=== PATIENT | male | born 1945 | race Caucasian/White ===

== ENCOUNTER 2017-01-18 18:27 | Inpatient (IN) | payer OTHER ==
[~2017-01-18] VITALS: Ht 172.7 cm; Wt 126.6 kg
--- NOTE | ~2017-01-18 | 2DMMODE ---
[place] [address] [place] [address] 2 D/M-MODE ECHOCARDIOGRAM Name: JOHAN KELLOGG Room #: 459-P [facility] IN .#: [id number] Admission: 01/18/17 Attend Phys: Kp Barroso MD Discharge: Date of : 49 Date of Service: 01/19/17 1450 Report #: [id number] THIS REPORT FOR: //name// APPROVED REPORT Study performed: 01/19/2017 12:28:32 EXAM: Comprehensive 2D, Doppler, and color-flow Echocardiogram Patient Location: Bedside Room #: 459 Blood Pressure: 184/112 mmHg HR: 89 bpm Rhythm: NSR Other Information Study Quality: Adequate Technically limited study due to body habitus, inability to position patient, lung disease. Indications Congestive Heart Failure Dyspnea Hx COPD, CVA, CAD, DM, HLP, Morbid Obesity 2D Dimensions RVDd: 40.97 mm LVEF(%): 62.96 (>50%) IVSd: 14.38 (7-11mm) LVOT Diam: 23.51 (18-24mm) LVDd: 49.44 mm PWd: 12.17 (7-11mm) Ascending Ao: 40.61 (22-36mm) LVDs: 32.54 (25-40mm) Aortic Root: 34.88 mm Miller's LVEF: 62.96 % Volumes Left Atrial Volume (Systole) Single Plane 4CH: 78.87 mL Single Plane 2CH: 57.78 mL LA ESV Index: 31.00 mL/m2 Aortic Valve AoV Peak Dusty.: 2.27 m/s AO Peak Gr.: 20.63 mmHg LVOT Max P.29 mmHg LVOT Max V: 1.52 m/s [facility] [place] [address] 2 D/M-MODE ECHOCARDIOGRAM Name: JOHAN KELLOGG Room #: 459-P [facility] IN .R.#: [id number] Admission: 01/18/17 Attend Phys: Kp Barroso MD Discharge: Date of : 49 Date of Service: 01/19/17 1450 Report #: [id number] YENNY Vmax: 2.91 cm2 Mitral Valve IVRT: 96.89 ms Pulmonary Valve PV Peak Dusty.: 1.50 m/s PV Peak Gr.: 9.00 mmHg Pulmonary Vein P Vein S: 0.74 m/s P Vein A: 0.39 m/s P Vein D: 0.70 m/s P Vein A Dur.: 124.6 msec P Vein S/D Ratio: 1.06 Tricuspid Valve TR Peak Dusty.: 2.95 m/s TR Peak Gr.: 34.92 mmHg Left Ventricle The left ventricle is normal size. There is normal LV segmental wall motion. Mild concentric left ventricular hypertrophy. The left ventricular systolic function is normal. The left ventricular ejection fraction is within the normal range. LVEF is 60-65%. This study is not technically sufficient to allow evaluation of the LV diastolic function. Right Ventricle The right ventricle is normal size. The right ventricular systolic function is normal. Atria Left atrium is mildly dilated. Right atrium is mildly dilated. Aortic Valve Aortic valve is calcified. Trace aortic regurgitation. There is no aortic valvular stenosis. Mitral Valve The mitral valve is normal in structure. Trace mitral regurgitation. No evidence of mitral valve stenosis. Tricuspid Valve The tricuspid valve is normal in structure. There is mild tricuspid regurgitation. There is mild-moderate pulmonary hypertension with an estimated PAP of 35 [place] [address] 2 D/M-MODE ECHOCARDIOGRAM Name: JOHAN KELLOGG Room #: 459-P [facility] IN ..#: [id number] Admission: 01/18/17 Attend Phys: Kp Barroso MD Discharge: Date of : 49 Date of Service: 01/19/17 1450 Report #: [id number] Pulmonic Valve The pulmonary valve is normal in structure. Trace pulmonic regurgitation. Great Vessels The aortic root is normal in size. The ascending aorta is normal in size. IVC is not well visualized. Pericardium There is no pericardial effusion. <Conclusion> The left ventricle is normal size. Mild concentric left ventricular hypertrophy. LVEF is 60-65%. Left atrium is mildly dilated. Right atrium is mildly dilated. Aortic valve is calcified. Trace aortic regurgitation. The mitral valve is normal in structure. Trace mitral regurgitation. The tricuspid valve is normal in structure. There is mild tricuspid regurgitation. There is mild-moderate pulmonary hypertension with an estimated PAP of 35 mmHg plus the RAP. The pulmonary valve is normal in structure. Trace pulmonic regurgitation. <ELECTRONICALLY SIGNED> By: Juan Alberto Sarabia MD 01/19/17 1450 1450 1450 Juan Alberto Sarabia MD /INF
--- NOTE | ~2017-01-18 | HC ---
[facility] [place] [address] [place] [address] CONSULTATION Name: JOHAN KELLOGG Room #: 459-P [facility] IN .R.#: [id number] Admission: 01/18/17 Attend Phys: Kp Barroso MD Discharge: Date of : 49 Report #: [id number] THIS REPORT FOR: //name// CC: Estephania Barroso TYPE OF REPORT: Pulmonary consultation. REFERRAL PHYSICIAN: Kp Barroso M.D. REASON FOR REFERRAL: Dyspnea. HISTORY OF PRESENT ILLNESS: The patient is a 71-year-old white male who was brought to the Emergency Room with progressive dyspnea. A pulmonary consultation was requested. The patient resides in a half-way following a CVA with left-sided weakness. The patient has been in his usual state of health until 3 days ago when he started to develop the rhinorrhea, cough and dyspnea. A chest x-ray performed on admission shows vascular congestion, though this was not available for review in the computer. Currently, he appears dyspneic with moderate upper airways sounds. He appears weak. Otherwise, history is somewhat limited as the patient is a fair historian. PAST MEDICAL HISTORY: Notable for history of COPD with past history of respiratory failure in November of 2016; CVA with left-sided hemiparesis; history of ASHLEY; diabetes mellitus; hypertension; coronary artery disease; ischemic cardiomyopathy with chronic diastolic and systolic heart failure; dementia; chronic kidney disease, level 3; hyperlipidemia; debility and weakness with history of falls; benign prostatic hypertrophy; degenerative joint disease; macular degeneration; anemia and depression. PAST SURGICAL HISTORY: Unremarkable. ALLERGIES: To SHELLFISH but none to medications. MEDICATIONS: From half-way are reviewed an assisted in the MAR. FAMILY HISTORY: Noncontributory. SOCIAL HISTORY: The patient is a lifetime nonsmoker. No alcohol use. He resides in a half-way. [facility] [address] [place] [address] CONSULTATION Name: VALDEZJOHAN Room #: 459-P [facility] IN [facility]#: [id number] Admission: 01/18/17 Attend Phys: Kp Barroso MD Discharge: Date of : 49 Report #: [id number] REVIEW OF SYSTEMS: As mentioned above, otherwise somewhat limited due to the patient's mental status. Otherwise, 10-point system review negative. PHYSICAL EXAMINATION: GENERAL: He is awake, alert and appears to be mildly dyspneic. VITAL SIGNS: Temperature is 98.4 degrees Fahrenheit, pulse is 90, respiratory rate is 24, blood pressure is 166/108 mmHg and saturation is 95%. HEENT: Normocephalic and atraumatic. NECK: Supple, without any lymphadenopathy or thyromegaly. CHEST: Breath sounds decreased with mild coarse breath sounds bilaterally. No overt wheezes. Few scattered crackles are heard in the bases. CARDIOVASCULAR: Heart sounds are distant. No obvious murmurs or gallop. Pulses are 2+/4+ bilaterally. ABDOMEN: Moderately obese, soft and nontender. No organomegaly or masses felt. GENITOURINARY: Deferred. RECTAL: Deferred. EXTREMITIES: No cyanosis or clubbing but remarkable for 2+/4+ bilateral pretibial edema. RADIOLOGICAL DATA: Again, not able to review chest x-ray but report suggests vascular congestion. Echocardiogram performed earlier today showed an ejection fraction of 60%-65%, mild concentric left ventricular hypertrophy, mildly dilated left and right atrium, trace aortic regurgitation, trace mitral regurgitation and pulmonary artery pressure measuring 35 mmHg. LABORATORY DATA: Electrolytes are unremarkable except for bicarbonate 36, BUN is 23 and creatinine is 1.0. WBC 9000, hemoglobin is 9.8 and platelets are mildly elevated. There are 9% bandemia. Albumin 2.4. IMPRESSION: 1. Acute hypoxic respiratory failure in this 71-year-old white male, likely secondary to acute combined heart failure, possible pneumonia. He has a history of chronic obstructive pulmonary disease and sleep apnea, which is likely contributing. 2. Probable [id number] diastolic and systolic heart failure. 3. Chronic obstructive pulmonary disease with mild exacerbation. 4. Obstructive sleep apnea, not clear if the patient is on continuous positive airway pressure or bilevel positive airway pressure in the half-way. 5. Suspect a component of chronic hypercapnic respiratory failure with elevated bicarbonate level on today's electrolytes. Baseline arterial blood gas will be obtained. 6. Coronary artery disease. 7. Cerebrovascular accident with left-sided hemiparesis, with progressive debility and weakness. 8. Hypertension, essential. 9. Dementia. [address] [address] CONSULTATION Name: JOHAN KELLOGG Room #: 459-P [facility] IN .R.#: [id number] Admission: 01/18/17 Attend Phys: Kp Barroso MD Discharge: Date of : 49 Report #: [id number] 10. Chronic kidney disease, creatinine today appears to be normal. RECOMMENDATION: We will start broad-spectrum antibiotics to cover for possible nosocomial infections including possible aspiration. Agree with corticosteroids and bronchodilators. DVT and GI prophylaxis has been addressed. I will tailor the antibiotics as such, given the patient is from a half-way. Additional recommendation will be BiPAP or CPAP during sleep p.r.n. if the patient tolerates. This might be difficult given his underlying dementia. Thank you for the consultation. <ELECTRONICALLY SIGNED> By: Sammy Edward MD 01/20/17 1442 1601 0244 Sammy Edward MD /nt
--- NOTE | ~2017-01-18 | EKG ---
[address] [address] ELECTROCARDIOGRAM REPORT Name: JOHAN KELLOGG Room #: 459-P [facility] [place] [facility]#: [id number] Admission: 01/18/17 Attend Phys: Kp Barroso MD Discharge: Date of : 49 Report #: [id number] THIS REPORT FOR: //name// [facility] ED Test Date: 2017-01-18 Test Time: 18:40:19 Pat Name: JOHAN KELLOGG Department: Room: [facility] Gender: M Teaching Music Lessons: elin : 1945 Requested By: Jc Villalba Order Number: [id number] MD: Koby Lundberg Measurements Intervals [place] Rate: 107 P: 28 NM: 170 QRS: -28 QRSD: 92 T: 83 QT: 330 QTc: 441 Interpretive Statements Sinus tachycardia Borderline left axis deviation Anteroseptal infarct, old Minimal ST depression, lateral leads Compared to ECG 05/09/2016 05:36:02 Septal Q waves are more prominent Electronically Signed On 01-19-2017 7:46:16 CDT by Koby Lundberg [email or web address] <ELECTRONICALLY SIGNED> By: Koby Lundberg MD, [facility] 01/19/17 0746 1840 1840 Koby Lundberg MD, [facility] /EPI
[~2017-01-18 18:27] MED LIST: ALDACTONE25 MG PO; AMITRIPTYLINE H25 M2 PO; APAP500 PO; ARICEPT 5 MG TAB5 MG PO; CARVEDILOL12.5 MG PO; CATAPRES0.2 MG PO; CELEXA20 MG PO; CLARITIN10 MG PO; FLOMAX0.4 MG PO; FLONASE 0.05%50 MCG NASAL; GLYCOLAX255 GM PO; HYDROCHLOROTHIA25 M2 PO; LIPITOR40 MG PO; MELOXICAM15 MG PO; PERCOCET PO; PLAVIX 75 MG TA75 M1 PO; POTASSIUM20 PO; PRINIVIL20 MG PO; TRICOR145 MG PO; VENTOLIN HFA 1818 GM INH; WELLBUTRIN SR150 MG PO; ZOCOR20 MG PO; ZOFRAN ODT4 MG PO
[2017-01-18 18:28] VITALS: BP 155/86
[2017-01-18 18:54] LABS: HEMATOCRIT 30.2 % (42.0-52.0); HEMOGLOBIN 9.8 gm/dL (14.0-18.0); MCH 28.7 pg (26.0-34.0); MCHC 32.5 g/dL (28.0-37.0); MCV 88.5 fL (80.0-100.0); PLATELET COUNT 404 thou/uL (150-400); RBC 3.41 mil/uL (4.50-6.00); RDW 16.4 % (10.5-14.5)
[2017-01-18 18:58] LABS: MANUAL DIFF YES
[2017-01-18 19:05] LABS: ANION GAP 5 mmol/L (7-16); BUN 20 mg/dL (7-18); CALCIUM 10.1 mg/dL (8.5-10.1); CHLORIDE 102 mmol/L (98-107); CO2 37 mmol/L (21-32); CREATININE 1.1 mg/dL (0.7-1.3); GLUCOSE 115 mg/dL (74-106); POTASSIUM 3.7 mmol/L (3.5-5.1); SODIUM 144 mmol/L (136-145)
[2017-01-18 19:21] LABS: ALBUMIN 2.4 g/dL (3.4-5.0); ALKALINE PHOSPHATASE 61 U/L (46-116); MAGNESIUM 1.3 mg/dL (1.8-2.4); NT-PRO BRAIN NAT PEPTIDE 632 pg/mL (<300); SGOT 24 U/L (15-37); SGPT 32 U/L (30-65); TOTAL BILIRUBIN 0.3 mg/dL (<0.1-1.0); TOTAL PROTEIN 6.7 g/dL (6.4-8.2); TROPONIN-I < 0.04 ng/mL (<0.04-0.07)
[2017-01-18 19:25] LABS: ATYPICAL LYMPHS 6 %; TOTAL CELL COUNT 100
[2017-01-18 19:27] LABS: ANISOCYTOSIS 1+; MICROCYTES 1+; POLYCHROMASIA SLIGHT
[2017-01-18 21:04] VITALS: BP 160/96
[2017-01-18] MEDS ORDERED: CRESTOR10 MG PO (22:57)
[2017-01-18] MEDS ORDERED: SENNA8.6 MG PO (22:58)
[2017-01-18] MEDS ORDERED: FLOMAX0.4 MG PO (22:59)
[2017-01-18] MEDS ORDERED: LISINOPRIL20 MG PO (23:00)
[2017-01-18] MEDS ORDERED: KETOCONAZOLE60 GM TP (23:01)
[2017-01-18] MEDS ORDERED: APAP500 PO (23:02)
[2017-01-18] MEDS ORDERED: METFORMIN HCL500 MG PO (23:04)
[2017-01-18] MEDS ORDERED: CLONIDINE0.1 PO (23:05)
[2017-01-18] MEDS ORDERED: MELATONIN3 MG PO (23:06)
[2017-01-18] MEDS ORDERED: ONDANSETRON HCL4 M2 PO (23:07)
[2017-01-18] MEDS ORDERED: ENDOCET 5-3251 EACH PO (23:08)
[2017-01-18] MEDS ORDERED: ALDARA1 EACH TOP (23:10)
[2017-01-18] MEDS ORDERED: CELEXA20 MG PO (23:11)
[2017-01-18] MEDS ORDERED: PLAVIX 75 MG TA75 M1 PO (23:11)
[2017-01-18] MEDS ORDERED: FLEXERIL PO (23:12)
[2017-01-18] MEDS ORDERED: PROSCAR 5MG TABL5 MG PO (23:12)
[2017-01-18] MEDS ORDERED: POTASSIUM20 PO (23:13)
[2017-01-18] MEDS ORDERED: LASIX 40 MG TAB40 M2 PO (23:13)
[2017-01-18] MEDS ORDERED: GLUCOSAMINE HC500 MG PO (23:14)
[2017-01-18 23:25] VITALS: BP 155/98
[2017-01-19 03:15] VITALS: BP 153/96
[2017-01-19 03:17] LABS: HEMATOCRIT 30.7 % (42.0-52.0); MCH 28.9 pg (26.0-34.0); MCHC 32.4 g/dL (28.0-37.0); RBC 3.45 mil/uL (4.50-6.00); RDW 16.2 % (10.5-14.5); WBC 7.5 thou/uL (4.0-11.0)
[2017-01-19 03:39] LABS: ANION GAP 5 mmol/L (7-16); BUN 23 mg/dL (7-18); CALCIUM 10.5 mg/dL (8.5-10.1); CHLORIDE 101 mmol/L (98-107); CHOLESTEROL 132 mg/dL (<200); CO2 36 mmol/L (21-32); CREATININE 1.1 mg/dL (0.7-1.3); GLUCOSE 171 mg/dL (74-106); HDL CHOLESTEROL 59 mg/dL (>40); LDL CHOLESTEROL 61 mg/dL (<100); MAGNESIUM 1.7 mg/dL (1.8-2.4); NT-PRO BRAIN NAT PEPTIDE 471 pg/mL (<300); POTASSIUM 3.7 mmol/L (3.5-5.1); SODIUM 142 mmol/L (136-145); TC:HDL 2.2 Ratio (Not establshd); TRIGLYCERIDE 62 mg/dL (<150); TROPONIN-I < 0.04 ng/mL (<0.04-0.07); VLDL 12 mg/dL (<40)
[2017-01-19 03:40] LABS: SERUM ASSESSMENT Clear
[2017-01-19 07:35] VITALS: BP 184/112
[2017-01-19 11:46] VITALS: BP 166/108
[2017-01-19 16:19] VITALS: BP 175/112
[2017-01-19 16:50] LABS: ABG SAMPLE TYPE ARTERIAL; BE(vivo) 9.3 mmol/L (-2 to +3); HCO3 35.7 mmol/L (22.0-26.0); LACTATE 1.19 mmol/L (0.5-2.0); O2(CT) 12.2 mL/dL (15.0-23.0); PCO2 58.5 mmHg (35.0-45.0); pH 7.403 (7.360-7.450); sO2 82.5 % (92.0-98.0); tCO2 37.5 mmol/L (24.0-30.0)
[2017-01-19 16:51] LABS: O2Hb 82.3 % (92.0-98.0); PO2 47.7 mmHg (80.0-100.0); STICK SITE R.RADIAL
[2017-01-19 20:00] VITALS: BP 140/84
[2017-01-20 03:09] LABS: GLYCOHEMOGLOBIN (HGB A1C) 5.7 % (4.8-5.6)
[2017-01-20 03:30] VITALS: BP 125/90
[2017-01-20 06:16] LABS: HEMATOCRIT 29.1 % (42.0-52.0); HEMOGLOBIN 9.3 gm/dL (14.0-18.0); MCH 28.6 pg (26.0-34.0); MCV 89.4 fL (80.0-100.0); RBC 3.26 mil/uL (4.50-6.00); RDW 15.9 % (10.5-14.5); WBC 10.5 thou/uL (4.0-11.0)
[2017-01-20 06:31] LABS: CALCIUM 10.4 mg/dL (8.5-10.1); CREATININE 1.2 mg/dL (0.7-1.3); POTASSIUM 3.9 mmol/L (3.5-5.1)
[2017-01-20 07:20] VITALS: BP 143/80
[2017-01-20 11:25] VITALS: BP 126/67
[2017-01-20 15:10] VITALS: BP 149/71
[2017-01-20 19:23] VITALS: BP 158/93
[2017-01-21] VITALS (25 sets, daily range): BP systolic 100–193; BP diastolic 62–109
[2017-01-21 02:34] LABS: ABG SAMPLE TYPE ARTERIAL; BE(vivo) 8.9 mmol/L (-2 to +3); HCO3 36.1 mmol/L (22.0-26.0); LACTATE 1.28 mmol/L (0.5-2.0); O2(CT) 13.9 mL/dL (15.0-23.0); O2Hb 97.7 % (92.0-98.0); PO2 135.6 mmHg (80.0-100.0); pH 7.355 (7.360-7.450); sO2 98.5 % (92.0-98.0); tCO2 38.1 mmol/L (24.0-30.0)
[2017-01-21 02:35] LABS: PCO2 66.1 mmHg (35.0-45.0); STICK SITE R.RADIAL
[2017-01-21 03:02] LABS: URINE BILIRUBIN ND (Negative); URINE BLOOD ND (Negative); URINE COLOR RED; URINE GLUCOSE-RANDOM* ND (Negative); URINE KETONES ND (Negative); URINE PROTEIN (DIPSTICK) ND (Negative); URINE SPECIFIC GRAVITY ND (1.003-1.035)
[2017-01-21 03:03] LABS: URINE LEUKOCYTES-REFLEX ND (Negative); URINE UROBILINOGEN ND E.U./dl (0.2-1.0)
[2017-01-21 03:05] LABS: SQUAMOUS 0-3 Few /LPF (0-3); URINE RBC >20 Many /HPF (0-2)
[2017-01-21 03:07] LABS: CASTS None Seen /LPF (None Seen); URINE WBC-REFLEX 0-5 Rare /HPF (0-5)
[2017-01-21 04:10] LABS: ABG SAMPLE TYPE ARTERIAL; BE(vivo) 12.5 mmol/L (-2 to +3); HCO3 39.7 mmol/L (22.0-26.0); LACTATE 1.51 mmol/L (0.5-2.0); O2(CT) 14.2 mL/dL (15.0-23.0); O2Hb 97.4 % (92.0-98.0); PO2 113.5 mmHg (80.0-100.0); pH 7.389 (7.360-7.450); sO2 97.9 % (92.0-98.0); tCO2 41.7 mmol/L (24.0-30.0)
[2017-01-21 04:11] LABS: PCO2 67.2 mmHg (35.0-45.0); STICK SITE R.RADIAL
[2017-01-21 04:12] LABS: Pressure Support 8 cm H20
[2017-01-21 04:26] LABS: HEMATOCRIT 28.2 % (42.0-52.0); HEMOGLOBIN 9.3 gm/dL (14.0-18.0); MANUAL DIFF YES; MCH 28.8 pg (26.0-34.0); MCHC 32.8 g/dL (28.0-37.0); MCV 87.9 fL (80.0-100.0); PLATELET COUNT 451 thou/uL (150-400); RBC 3.21 mil/uL (4.50-6.00); RDW 15.8 % (10.5-14.5); WBC 11.6 thou/uL (4.0-11.0)
[2017-01-21 04:40] LABS: ANION GAP < 0 mmol/L (7-16); BUN 46 mg/dL (7-18); CALCIUM 10.3 mg/dL (8.5-10.1); CHLORIDE 107 mmol/L (98-107); CO2 39 mmol/L (21-32); CREATININE 1.4 mg/dL (0.7-1.3); GLUCOSE 133 mg/dL (74-106); SODIUM 145 mmol/L (136-145)
[2017-01-21 04:51] LABS: NT-PRO BRAIN NAT PEPTIDE 860 pg/mL (<300); TROPONIN-I < 0.04 ng/mL (<0.04-0.07)
[2017-01-21 07:59] LABS: ABSOLUTE NEUTROPHILS 10.2 thou/uL (1.4-8.2); METAMYELOCYTES 1 %; TOTAL CELL COUNT 100
[2017-01-21 08:00] LABS: ANISOCYTOSIS 1+
[2017-01-22 03:45] VITALS: BP 159/104
[2017-01-22 04:16] LABS: HEMATOCRIT 29.8 % (42.0-52.0); HEMOGLOBIN 9.5 gm/dL (14.0-18.0); MCH 28.2 pg (26.0-34.0); MCHC 31.8 g/dL (28.0-37.0); MCV 88.9 fL (80.0-100.0); RBC 3.35 mil/uL (4.50-6.00); RDW 16.1 % (10.5-14.5); WBC 12.5 thou/uL (4.0-11.0)
[2017-01-22 04:29] LABS: ANION GAP < 0 mmol/L (7-16); BUN 47 mg/dL (7-18); CALCIUM 10.2 mg/dL (8.5-10.1); CHLORIDE 107 mmol/L (98-107); CO2 42 mmol/L (21-32); CREATININE 1.3 mg/dL (0.7-1.3); GLUCOSE 117 mg/dL (74-106); POTASSIUM 3.8 mmol/L (3.5-5.1); SODIUM 146 mmol/L (136-145)
[2017-01-22 07:25] VITALS: BP 185/105
[2017-01-22 08:51] LABS: ABG SAMPLE TYPE ARTERIAL; BE(vivo) 16.3 mmol/L (-2 to +3); HCO3 43.2 mmol/L (22.0-26.0); LACTATE 1.26 mmol/L (0.5-2.0); O2(CT) 14.8 mL/dL (15.0-23.0); O2Hb 93.6 % (92.0-98.0); PO2 70.3 mmHg (80.0-100.0); sO2 94.1 % (92.0-98.0); tCO2 45.2 mmol/L (24.0-30.0)
[2017-01-22 08:52] LABS: Pressure Support 8 cm H20; STICK SITE R.RADIAL
[2017-01-22 11:05] VITALS: BP 173/91
[2017-01-22 15:35] VITALS: BP 180/93
[2017-01-22 21:16] VITALS: BP 161/99
[2017-01-23] VITALS (8 sets, daily range): BP systolic 133–192; BP diastolic 75–115
[2017-01-23 03:10] LABS: HEMATOCRIT 30.4 % (42.0-52.0); HEMOGLOBIN 9.9 gm/dL (14.0-18.0); MCH 28.7 pg (26.0-34.0); MCHC 32.6 g/dL (28.0-37.0); RBC 3.46 mil/uL (4.50-6.00); RDW 15.9 % (10.5-14.5); WBC 13.4 thou/uL (4.0-11.0)
[2017-01-23 03:21] LABS: BUN 46 mg/dL (7-18); CALCIUM 10.5 mg/dL (8.5-10.1); CHLORIDE 102 mmol/L (98-107); CREATININE 1.3 mg/dL (0.7-1.3); GLUCOSE 131 mg/dL (74-106); POTASSIUM 3.5 mmol/L (3.5-5.1); SODIUM 149 mmol/L (136-145)
[2017-01-23 03:26] LABS: CO2 > 45 mmol/L (21-32)
[2017-01-24 04:48] VITALS: BP 144/93
[2017-01-24 05:22] LABS: HEMATOCRIT 30.9 % (42.0-52.0); HEMOGLOBIN 9.9 gm/dL (14.0-18.0); MCH 28.3 pg (26.0-34.0); MCV 88.4 fL (80.0-100.0); RBC 3.5 mil/uL (4.50-6.00); RDW 16.1 % (10.5-14.5); WBC 13.2 thou/uL (4.0-11.0)
[2017-01-24 05:31] LABS: BUN 42 mg/dL (7-18); CHLORIDE 101 mmol/L (98-107); CREATININE 1.4 mg/dL (0.7-1.3); GLUCOSE 119 mg/dL (74-106); POTASSIUM 3.2 mmol/L (3.5-5.1); SODIUM 147 mmol/L (136-145)
[2017-01-24 05:33] LABS: CO2 > 45 mmol/L (21-32)
[2017-01-24 07:30] VITALS: BP 154/102
[2017-01-24 11:15] VITALS: BP 138/75
[2017-01-24 15:15] VITALS: BP 165/97
[2017-01-24 20:11] LABS: MAGNESIUM 1.8 mg/dL (1.8-2.4)
[2017-01-24 20:16] LABS: POTASSIUM 4.2 mmol/L (3.5-5.1)
[2017-01-24 20:21] VITALS: BP 168/94
[2017-01-24 23:27] VITALS: BP 193/118
[2017-01-25 02:32] VITALS: BP 159/103
[2017-01-25 04:31] LABS: HEMATOCRIT 32.3 % (42.0-52.0); HEMOGLOBIN 10.4 gm/dL (14.0-18.0); MCH 28.3 pg (26.0-34.0); MCHC 32.1 g/dL (28.0-37.0); MCV 88.2 fL (80.0-100.0); RBC 3.67 mil/uL (4.50-6.00); RDW 16.4 % (10.5-14.5); WBC 16.1 thou/uL (4.0-11.0)
[2017-01-25 04:38] LABS: CREATININE 1.3 mg/dL (0.7-1.3); POTASSIUM 3.6 mmol/L (3.5-5.1)
[2017-01-25 06:40] LABS: ABG SAMPLE TYPE ARTERIAL; HCO3 42.5 mmol/L (22.0-26.0); LACTATE 1.44 mmol/L (0.5-2.0); O2(CT) 15.6 mL/dL (15.0-23.0); O2Hb 97.3 % (92.0-98.0); PCO2 61.2 mmHg (35.0-45.0); PO2 111.9 mmHg (80.0-100.0); STICK SITE L.RADIAL; pH 7.459 (7.360-7.450); sO2 98.2 % (92.0-98.0); tCO2 44.3 mmol/L (24.0-30.0)
[2017-01-25 06:41] LABS: ABG COMMENT BIPAP 14/6 RR 10 30%; Pressure Support 8 cm H20
[2017-01-25 07:15] VITALS: BP 179/100
[2017-01-25 11:45] VITALS: BP 138/86
[2017-01-25 16:00] VITALS: BP 136/82
[2017-01-25 19:15] VITALS: BP 125/75
[2017-01-26 02:59] VITALS: BP 187/108
[2017-01-26 08:01] VITALS: BP 170/89
[2017-01-26 09:11] LABS: CALCIUM 10.1 mg/dL (8.5-10.1); CREATININE 1.3 mg/dL (0.7-1.3); POTASSIUM 3.9 mmol/L (3.5-5.1)
[2017-01-26 09:49] LABS: ABG SAMPLE TYPE ARTERIAL; BE(vivo) 9.9 mmol/L (-2 to +3); HCO3 35.3 mmol/L (22.0-26.0); O2(CT) 14.8 mL/dL (15.0-23.0); O2Hb 91.9 % (92.0-98.0); PCO2 51.5 mmHg (35.0-45.0); PO2 65.7 mmHg (80.0-100.0); STICK SITE L.RADIAL; pH 7.454 (7.360-7.450); sO2 93.5 % (92.0-98.0); tCO2 36.9 mmol/L (24.0-30.0)
[2017-01-26 11:39] VITALS: BP 131/67
[2017-01-26 20:40] VITALS: BP 167/92
[2017-01-26 23:32] VITALS: BP 138/106
[2017-01-27 03:10] VITALS: BP 174/92
[2017-01-27 05:05] LABS: CALCIUM 9.9 mg/dL (8.5-10.1); CREATININE 1.2 mg/dL (0.7-1.3); POTASSIUM 3.8 mmol/L (3.5-5.1)
[2017-01-27 07:38] VITALS: BP 189/99
[2017-01-27 08:35] LABS: HEMATOCRIT 31.9 % (42.0-52.0); HEMOGLOBIN 10.2 gm/dL (14.0-18.0); MCH 28.4 pg (26.0-34.0); MCHC 32.1 g/dL (28.0-37.0); MCV 88.5 fL (80.0-100.0); RBC 3.6 mil/uL (4.50-6.00); RDW 16.8 % (10.5-14.5); WBC 12.9 thou/uL (4.0-11.0)
[2017-01-27 11:48] VITALS: BP 150/83
[2017-01-27] MEDS ORDERED: PROBIOTIC1 EAC1 PO (11:52)
[2017-01-27] MEDS ORDERED: DUONEB 2.5-0.5 M3 ML INH (11:52)
[2017-01-27] MEDS ORDERED: ENOXAPARIN40 MG/0.1 SUBQ (11:52)
[2017-01-27] MEDS ORDERED: AUGMENTIN 875875 MG PO (11:52)
[2017-01-27] MEDS ORDERED: PROTONIX40 M1 PO (11:52)
[2017-01-27] MEDS ORDERED: PREDNISONE 10 M10 MG PO (11:52)
[2017-01-27 17:12] VITALS: BP 160/90
== END 2017-01-27 18:25 | DRG 177 ==
LOC: ER 18:27 → EROBS 19:49 → EDBD 19:49 → 4W 19:49 → ICU 01-21 05:16 → 2N 01-21 16:08
PROVIDERS: Emergency Medicine; Hospitalist; Internal Medicine; Internal Medicine Pulmonary Disease; Nurse Practitioner Family
PROC: 5A09557 Assistance with Respiratory Ventilation, Greater than 96 Consecutive Hours, Continuous Positive Airway Pressure (ICD-10-PCS; principal; 2017-01-21)
DX: J69.0 Pneumonitis due to inhalation of food and vomit (principal); J96.01 Acute respiratory failure with hypoxia; I50.33 Acute on chronic diastolic (congestive) heart failure; I13.0 Hypertensive heart and chronic kidney disease with heart failure and stage 1 through stage 4 chronic kidney disease, or unspecified chronic kidney disease; J44.1 Chronic obstructive pulmonary disease with (acute) exacerbation; N17.9 Acute kidney failure, unspecified; J44.0 Chronic obstructive pulmonary disease with (acute) lower respiratory infection; I69.354 Hemiplegia and hemiparesis following cerebral infarction affecting left non-dominant side; Z68.41 Body mass index [BMI] 40.0-44.9, adult; J18.9 Pneumonia, unspecified organism; G47.33 Obstructive sleep apnea (adult) (pediatric); F03.90 Unspecified dementia, unspecified severity, without behavioral disturbance, psychotic disturbance, mood disturbance, and anxiety; I25.10 Atherosclerotic heart disease of native coronary artery without angina pectoris; N18.3 Chronic kidney disease, stage 3 (moderate); E78.5 Hyperlipidemia, unspecified; N40.0 Benign prostatic hyperplasia without lower urinary tract symptoms; M19.90 Unspecified osteoarthritis, unspecified site; E11.22 Type 2 diabetes mellitus with diabetic chronic kidney disease; H35.30 Unspecified macular degeneration; F32.9 Major depressive disorder, single episode, unspecified; E55.9 Vitamin D deficiency, unspecified; E66.01 Morbid (severe) obesity due to excess calories; Z91.013 Allergy to seafood; Z79.899 Other long term (current) drug therapy; Z91.81 History of falling
CPT/HCPCS: 10045; 10081; 27001